=== PATIENT | female | born 1965 | race Caucasian/White ===

== ENCOUNTER 2019-04-19 12:39 | Inpatient (IN) | payer MEDICAID, OTHER ==
[~2019-04-19] VITALS: Ht 152.4 cm; Wt 67.9 kg
[~2019-04-19 12:39] MED LIST: ALPR0.25 PO; ESCI5TAB7 PO
[2019-04-19] MEDS ORDERED: VANCOMYCIN PER PHARMACY MC ONE (13:30)
[2019-04-19] MEDS ORDERED: SODIUM CHLORIDE 0.9% 1,000ML IVBOLUS ONE (13:30)
[2019-04-19] MEDS ORDERED: PIPERACILLIN/TAZO/PMX 4.5GM 100 ML IVPB ONE (13:30)
[2019-04-19] MEDS ORDERED: SODIUM CHLORIDE FLUSH 10ML SYR IVF ONE (13:30)
[2019-04-19] MEDS ORDERED: VANCOMYCIN 1,100 MG in SODIUM CHLORIDE 0.9% 250 ML IV ONE (13:30)
[2019-04-19 13:35] LABS: ALANINE AMINOTRANSFERASE 31 U/L (12-78); ANION GAP 10 mmol/L (5-15); CALCIUM 8.7 mg/dL (8.5-10.1); CHLORIDE 102 mmol/L (98-107)
[2019-04-19 13:40] LABS: ALKALINE PHOSPHATASE 117 U/L (45-117); BILIRUBIN,TOTAL 0.5 mg/dL (0.2-1.0); TOTAL PROTEIN 9.1 g/dL (6.4-8.2)
[2019-04-19 13:47] LABS: BASOPHILS # (AUTO) 0.05 x10^3/uL (0-0.1); BASOPHILS % (AUTO) 1 % (0-1); EOSINOPHILS % (AUTO) 0 % (1-7); LYMPHOCYTES # (AUTO) 1.18 x10^3/uL (1-3.4); LYMPHOCYTES % (AUTO) 18 % (22-44); MD NO; MEAN CORPUSCULAR HEMOGLOBIN 30.5 pg (27.0-34.8); MEAN CORPUSCULAR HGB CONC 32.8 g/dL (32.4-35.8); MEAN CORPUSCULAR VOLUME 92.9 fL (80-100); MEAN PLATELET VOLUME 6.1 fL (7.4-10.4); MONOCYTES # (AUTO) 0.28 x10^3/uL (0.2-0.8); MONOCYTES % (AUTO) 4 % (2-9); NEUTROPHILS # (AUTO) 5.06 x10^3/uL (1.8-6.8); NEUTROPHILS % (AUTO) 77 % (42-75); PLATELET COUNT 288 x10^3/uL (130-400); RED BLOOD COUNT 4.91 x10^6/uL (3.82-5.3); RED CELL DISTRIBUTION WIDTH 18.7 % (9.6-15.2)
--- NOTE | 2019-04-19 14:05 | NUR ---
upon going into pt's room to start antibiotics, pt under blanket and has a large bag of wine. explained to pt that she cannot have alcohol on campus and that we want to admit her to receive antibiotics. pt upset but then calmed down and said i could dispose of wine. pt remains teary over losing her dog of three years.
--- NOTE | 2019-04-19 14:34 | NUR ---
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 UPON REENTERING PTS ROOM APPX 5 MIN LATER PT HAD REMOVED O2 AND REFUSED TO PUT IT BACK ON. PT EDUCATED ON CURRENT O2 SAT AND IMPORTANCE OF SUPPLEMENTAL O2 AT THIS TIME. PT CONTINUED TO REFUSE. GLENNA MORE NOTIFIED.
[2019-04-19] MEDS ORDERED: NEOSPORIN OINT. PKT 1 PACKET ONE (14:38)
[2019-04-19] MEDS ORDERED: morphine SULFATE 10 MG/ML, 1ML IVPush PRN (15:00)
[2019-04-19] MEDS ORDERED: CHLORDIAZEPOXIDE 10 MG CAPSULE PO PRN (15:00)
[2019-04-19] MEDS ORDERED: CHLORDIAZEPOXIDE 25 MG CAPSULE PO PRN ×3 (15:00)
--- NOTE | 2019-04-19 15:20 | NUR ---
skye cleaning and dressing wounds and hospitalist examining pt. pt declining bp and pulse ox
[2019-04-19] MEDS ORDERED: THIAMINE 200 MG in DEXTROSE 5% 50 ML IVPB ONE (15:30)
--- NOTE | 2019-04-19 15:53 | NUR ---
SHELLEY AWARE PT WILL STILL NEED 700 ML OF NS BOLUS FIRST LITER STILL INFUSING
--- NOTE | 2019-04-19 15:53 | NUR ---
report to thomas. pt to be transported to floor.
[2019-04-19 16:01] LABS: HCT (SEDRATE) 45.6 % (34.6-47.8)
[2019-04-19] MEDS: ENOXAPARIN 40 MG/0.4 ML SQ SCH (17:37)
[2019-04-19 19:00] VITALS: BP 116/64
[2019-04-19] MEDS: SODIUM CHLORIDE 0.9% 1,000 ML IV SCH (20:06)
[2019-04-19 20:15] VITALS: BP 100/58
[2019-04-19] MEDS ORDERED: LORazepam 2 MG/ML, 1ML IVPush ONE (21:00)
[2019-04-19 22:03] LABS: CLOSTRIDIUM DIFFICILE ANTIGEN POSITIVE; CLOSTRIDIUM DIFFICILE TOXIN NEGATIVE (Negative)
[2019-04-19] MEDS ORDERED: LORazepam 2 MG/ML, 1ML IV PRN (22:30)
[2019-04-19] MEDS: LORazepam 2 MG/ML, 1ML IV PRN (23:24)
[2019-04-20] MEDS: LORazepam 2 MG/ML, 1ML IV PRN ×6 (00:48→21:03)
[2019-04-20] MEDS: SODIUM CHLORIDE 0.9% 1,000 ML IV SCH ×3 (00:50→17:49)
[2019-04-20 01:10] VITALS: BP 110/58
[2019-04-20] MEDS: ACETAMINOPHEN 325 MG TABLET PO PRN ×3 (04:47→19:34)
[2019-04-20 04:57] LABS: ANION GAP 5 mmol/L (5-15); CALCIUM 7.4 mg/dL (8.5-10.1); CHLORIDE 110 mmol/L (98-107); CREATININE 0.67 mg/dL (0.55-1.02)
[2019-04-20 05:01] LABS: BASOPHILS # (AUTO) 0.06 x10^3/uL (0-0.1); BASOPHILS % (AUTO) 1 % (0-1); EOSINOPHILS # (AUTO) 0.03 x10^3/uL (0-0.4); EOSINOPHILS % (AUTO) 1 % (1-7); LYMPHOCYTES # (AUTO) 0.95 x10^3/uL (1-3.4); LYMPHOCYTES % (AUTO) 18 % (22-44); MD NO; MEAN CORPUSCULAR HEMOGLOBIN 30.6 pg (27.0-34.8); MEAN CORPUSCULAR HGB CONC 32.5 g/dL (32.4-35.8); MEAN CORPUSCULAR VOLUME 94.2 fL (80-100); MEAN PLATELET VOLUME 6.1 fL (7.4-10.4); MONOCYTES % (AUTO) 6 % (2-9); NEUTROPHILS % (AUTO) 75 % (42-75); PLATELET COUNT 177 x10^3/uL (130-400); RED BLOOD COUNT 3.53 x10^6/uL (3.82-5.3); RED CELL DISTRIBUTION WIDTH 18.2 % (9.6-15.2)
[2019-04-20 08:16] VITALS: BP 118/75
[2019-04-20] MEDS: SENNA/DOCUSATE TABLET PO SCH (09:00)
[2019-04-20] MEDS: MULTIVITAMINS/MINERALS TABLET PO SCH (10:02)
[2019-04-20] MEDS ORDERED: PHARMACOKINETIC MONITORING MC PRN (15:30)
[2019-04-20] MEDS ORDERED: VANCOMYCIN PER PHARMACY MC PRN (15:30)
[2019-04-20] MEDS ORDERED: PHARMACOKINETIC CONSULTATION MC ONE (15:30)
[2019-04-20] MEDS: CEFEPIME 1 GM in DEXTROSE 5% 50 ML IV SCH ×2 (15:59→22:45)
[2019-04-20] MEDS: VANCOMYCIN 1,100 MG in SODIUM CHLORIDE 0.9% 250 ML IV SCH (17:42)
[2019-04-20] MEDS: ENOXAPARIN 40 MG/0.4 ML SQ SCH (17:54)
[2019-04-20 19:40] VITALS: BP 123/78
[2019-04-20] MEDS: VANCOMYCIN 50 MG/ML ORAL SUSP PO SCH (21:11)
[2019-04-21 00:38] VITALS: BP 116/72
[2019-04-21] MEDS: LORazepam 2 MG/ML, 1ML IV PRN ×6 (01:23→23:23)
[2019-04-21] MEDS: SODIUM CHLORIDE 0.9% 1,000 ML IV SCH ×3 (02:29→18:17)
[2019-04-21] MEDS: VANCOMYCIN 50 MG/ML ORAL SUSP PO SCH ×3 (03:45→18:16)
[2019-04-21 05:05] LABS: ANION GAP 6 mmol/L (5-15); BASOPHILS # (AUTO) 0.03 x10^3/uL (0-0.1); BASOPHILS % (AUTO) 1 % (0-1); CALCIUM 8.3 mg/dL (8.5-10.1); CHLORIDE 105 mmol/L (98-107); EOSINOPHILS % (AUTO) 3 % (1-7); LYMPHOCYTES # (AUTO) 1.03 x10^3/uL (1-3.4); LYMPHOCYTES % (AUTO) 27 % (22-44); MD NO; MEAN CORPUSCULAR HEMOGLOBIN 30.9 pg (27.0-34.8); MEAN CORPUSCULAR HGB CONC 32.3 g/dL (32.4-35.8); MEAN CORPUSCULAR VOLUME 95.8 fL (80-100); MEAN PLATELET VOLUME 6.2 fL (7.4-10.4); MONOCYTES # (AUTO) 0.32 x10^3/uL (0.2-0.8); MONOCYTES % (AUTO) 9 % (2-9); NEUTROPHILS # (AUTO) 2.29 x10^3/uL (1.8-6.8); NEUTROPHILS % (AUTO) 61 % (42-75); PLATELET COUNT 166 x10^3/uL (130-400); RED BLOOD COUNT 3.84 x10^6/uL (3.82-5.3); RED CELL DISTRIBUTION WIDTH 18.2 % (9.6-15.2)
[2019-04-21 05:06] LABS: ALANINE AMINOTRANSFERASE 20 U/L (12-78); ALBUMIN 2.7 g/dL (3.4-5.0)
[2019-04-21 05:08] LABS: ALKALINE PHOSPHATASE 73 U/L (45-117); BILIRUBIN,TOTAL 0.8 mg/dL (0.2-1.0); TOTAL PROTEIN 6.3 g/dL (6.4-8.2)
[2019-04-21 07:10] VITALS: BP 134/88
[2019-04-21] MEDS: SENNA/DOCUSATE TABLET PO SCH (09:00)
[2019-04-21] MEDS ORDERED: FENTANYL PF 100 MCG/2ML ONE (10:12)
[2019-04-21] MEDS ORDERED: FLUMAZENIL 0.1 MG/1 ML, 5ML ONE (10:12)
[2019-04-21] MEDS ORDERED: MIDAZOLAM 1 MG/ML, 5ML ONE (10:12)
[2019-04-21] MEDS ORDERED: NALOXONE 1 MG/ML, 2ML ONE (10:12)
[2019-04-21] MEDS: CEFEPIME 1 GM in DEXTROSE 5% 50 ML IV SCH ×2 (12:06→23:28)
[2019-04-21] MEDS: FOLIC ACID 1 MG TABLET PO SCH (12:06)
[2019-04-21] MEDS: ACETAMINOPHEN 325 MG TABLET PO PRN (12:06)
[2019-04-21] MEDS: MULTIVITAMINS/MINERALS TABLET PO SCH (12:06)
[2019-04-21] MEDS: THIAMINE 100MG TABLET PO SCH ×2 (12:06→20:31)
[2019-04-21 14:09] VITALS: BP 128/74
[2019-04-21] MEDS: ENOXAPARIN 40 MG/0.4 ML SQ SCH (15:37)
[2019-04-21] MEDS: VANCOMYCIN 1,100 MG in SODIUM CHLORIDE 0.9% 250 ML IV SCH (18:17)
[2019-04-21 18:35] VITALS: BP 128/88
[2019-04-21 20:11] VITALS: BP 146/104
[2019-04-21 23:20] VITALS: BP 149/98
[2019-04-22] MEDS: VANCOMYCIN 50 MG/ML ORAL SUSP PO SCH ×4 (00:46→19:42)
[2019-04-22] MEDS: ACETAMINOPHEN 325 MG TABLET PO PRN ×2 (00:54→20:55)
[2019-04-22] MEDS: LORazepam 2 MG/ML, 1ML IV PRN ×3 (03:44→20:55)
[2019-04-22] MEDS: SODIUM CHLORIDE 0.9% 1,000 ML IV SCH ×3 (06:14→20:55)
[2019-04-22] MEDS: CEFEPIME 1 GM in DEXTROSE 5% 50 ML IV SCH ×3 (08:04→23:46)
[2019-04-22] MEDS: FOLIC ACID 1 MG TABLET PO SCH (08:06)
[2019-04-22] MEDS: MULTIVITAMINS/MINERALS TABLET PO SCH (08:06)
[2019-04-22] MEDS: THIAMINE 100MG TABLET PO SCH ×2 (08:06→20:55)
[2019-04-22] MEDS: SENNA/DOCUSATE TABLET PO SCH (08:06)
[2019-04-22 09:43] VITALS: BP 147/95
[2019-04-22 13:18] VITALS: BP 151/92
[2019-04-22] MEDS ORDERED: GADOTERATE 7.5 MMOL/15 ML SYR ONE (14:23)
[2019-04-22] MEDS ORDERED: ONDANSETRON 2MG/ML, 2ML ONE (15:10)
[2019-04-22] MEDS ORDERED: LORazepam 2 MG/ML, 1ML ONE (15:14)
[2019-04-22] MEDS ORDERED: LORazepam 2 MG/ML, 1ML IVPush PRN (15:30)
[2019-04-22] MEDS ORDERED: METOCLOPRAMIDE 5 MG/ML, 2ML IV PRN (15:30)
[2019-04-22] MEDS ORDERED: ONDANSETRON 2MG/ML, 2ML IV PRN (15:30)
[2019-04-22] MEDS: ENOXAPARIN 40 MG/0.4 ML SQ SCH (15:30)
[2019-04-22] MEDS ORDERED: FENTANYL PF 100 MCG/2ML IV PRN (15:30)
[2019-04-22] MEDS ORDERED: OXYcodone 5 MG/5 ML ORAL.SOL UDC PO PRN (15:30)
[2019-04-22] MEDS ORDERED: ACETAMINOPHEN 325 MG TABLET PO PRN (15:30)
[2019-04-22] MEDS ORDERED: MEPERIDINE/PF 25MG/ML,1ML IVPush PRN (15:30)
[2019-04-22] MEDS ORDERED: HYDROmorphone 2 MG/ML, 1ML IVPush PRN (15:30)
[2019-04-22] MEDS: VANCOMYCIN 1,100 MG in SODIUM CHLORIDE 0.9% 250 ML IV SCH (18:30)
[2019-04-23] MEDS: SODIUM CHLORIDE 0.9% 1,000 ML IV SCH ×3 (02:07→21:19)
[2019-04-23] MEDS: VANCOMYCIN 50 MG/ML ORAL SUSP PO SCH ×4 (02:07→22:44)
[2019-04-23] MEDS: LORazepam 2 MG/ML, 1ML IV PRN ×5 (02:23→21:15)
[2019-04-23 03:08] VITALS: BP 115/82
[2019-04-23] MEDS: VANCOMYCIN 1,100 MG in SODIUM CHLORIDE 0.9% 250 ML IV SCH (06:12)
[2019-04-23 07:05] LABS: BASOPHILS # (AUTO) 0.03 x10^3/uL (0-0.1); BASOPHILS % (AUTO) 1 % (0-1); EOSINOPHILS # (AUTO) 0.29 x10^3/uL (0-0.4); EOSINOPHILS % (AUTO) 5 % (1-7); LYMPHOCYTES % (AUTO) 26 % (22-44); MD NO; MEAN CORPUSCULAR HGB CONC 33.3 g/dL (32.4-35.8); MEAN PLATELET VOLUME 6.9 fL (7.4-10.4); MONOCYTES # (AUTO) 0.43 x10^3/uL (0.2-0.8); MONOCYTES % (AUTO) 8 % (2-9); NEUTROPHILS # (AUTO) 3.21 x10^3/uL (1.8-6.8); NEUTROPHILS % (AUTO) 60 % (42-75); PLATELET COUNT 127 x10^3/uL (130-400); RED BLOOD COUNT 3.76 x10^6/uL (3.82-5.3); RED CELL DISTRIBUTION WIDTH 18.3 % (9.6-15.2)
[2019-04-23 07:11] VITALS: BP 119/77
[2019-04-23 07:15] LABS: ALANINE AMINOTRANSFERASE 24 U/L (12-78); ALBUMIN 2.9 g/dL (3.4-5.0); ANION GAP 8 mmol/L (5-15); CALCIUM 8.3 mg/dL (8.5-10.1); CHLORIDE 107 mmol/L (98-107); CREATININE 0.53 mg/dL (0.55-1.02)
[2019-04-23 07:18] LABS: ALKALINE PHOSPHATASE 73 U/L (45-117); BILIRUBIN,TOTAL 0.7 mg/dL (0.2-1.0); TOTAL PROTEIN 6.4 g/dL (6.4-8.2)
[2019-04-23] MEDS: THIAMINE 100MG TABLET PO SCH ×2 (08:28→20:53)
[2019-04-23] MEDS: MULTIVITAMINS/MINERALS TABLET PO SCH (08:28)
[2019-04-23] MEDS: SENNA/DOCUSATE TABLET PO SCH (08:28)
[2019-04-23] MEDS: ENOXAPARIN 40 MG/0.4 ML SQ SCH (08:32)
[2019-04-23] MEDS: CEFEPIME 1 GM in DEXTROSE 5% 50 ML IV SCH ×3 (08:53→22:45)
[2019-04-23] MEDS: FOLIC ACID 1 MG TABLET PO SCH (08:53)
[2019-04-23 14:23] VITALS: BP 118/70
[2019-04-23] MEDS: ACETAMINOPHEN 325 MG TABLET PO PRN (17:04)
[2019-04-23] MEDS: LACTOBACILLUS CHEW TABLET PO SCH ×2 (17:05→20:53)
[2019-04-23 18:48] VITALS: BP 139/80
[2019-04-23 19:41] VITALS: BP 131/80
[2019-04-23] MEDS: VANCOMYCIN PMX 1GM/200ML 200 ML IV SCH (21:15)
[2019-04-24 02:00] VITALS: BP 162/92
[2019-04-24] MEDS: LORazepam 2 MG/ML, 1ML IV PRN ×5 (02:07→21:24)
[2019-04-24 04:51] LABS: BASOPHILS # (AUTO) 0.02 x10^3/uL (0-0.1); BASOPHILS % (AUTO) 0 % (0-1); EOSINOPHILS # (AUTO) 0.21 x10^3/uL (0-0.4); EOSINOPHILS % (AUTO) 4 % (1-7); LYMPHOCYTES % (AUTO) 34 % (22-44); MD NO; MEAN CORPUSCULAR HEMOGLOBIN 31.3 pg (27.0-34.8); MEAN CORPUSCULAR HGB CONC 32.2 g/dL (32.4-35.8); MEAN CORPUSCULAR VOLUME 97.2 fL (80-100); MEAN PLATELET VOLUME 7.4 fL (7.4-10.4); MONOCYTES % (AUTO) 9 % (2-9); NEUTROPHILS % (AUTO) 53 % (42-75); PLATELET COUNT 115 x10^3/uL (130-400); RED BLOOD COUNT 3.49 x10^6/uL (3.82-5.3); RED CELL DISTRIBUTION WIDTH 18.1 % (9.6-15.2)
[2019-04-24 05:04] LABS: ANION GAP 6 mmol/L (5-15); CALCIUM 8.8 mg/dL (8.5-10.1); CHLORIDE 110 mmol/L (98-107)
[2019-04-24 05:05] LABS: CREATININE 0.59 mg/dL (0.55-1.02)
[2019-04-24] MEDS: SODIUM CHLORIDE 0.9% 1,000 ML IV SCH ×2 (05:34→14:12)
[2019-04-24] MEDS: VANCOMYCIN 50 MG/ML ORAL SUSP PO SCH ×4 (06:20→23:04)
[2019-04-24] MEDS: CEFEPIME 1 GM in DEXTROSE 5% 50 ML IV SCH ×2 (08:20→15:45)
[2019-04-24] MEDS: MULTIVITAMINS/MINERALS TABLET PO SCH (08:21)
[2019-04-24] MEDS: THIAMINE 100MG TABLET PO SCH ×2 (08:21→19:44)
[2019-04-24] MEDS: LACTOBACILLUS CHEW TABLET PO SCH ×3 (08:21→19:44)
[2019-04-24] MEDS: ENOXAPARIN 40 MG/0.4 ML SQ SCH (08:21)
[2019-04-24] MEDS: SENNA/DOCUSATE TABLET PO SCH (08:21)
[2019-04-24] MEDS: FOLIC ACID 1 MG TABLET PO SCH (08:21)
[2019-04-24 08:42] VITALS: BP 150/84
[2019-04-24] MEDS: VANCOMYCIN PMX 1GM/200ML 200 ML IV SCH ×2 (09:10→21:13)
[2019-04-24 16:59] VITALS: BP 159/94
[2019-04-24 19:22] VITALS: BP 152/96
[2019-04-24] MEDS: ACETAMINOPHEN 325 MG TABLET PO PRN (21:13)
[2019-04-25] MEDS: CEFEPIME 1 GM in DEXTROSE 5% 50 ML IV SCH ×3 (00:45→17:33)
[2019-04-25] MEDS: LORazepam 2 MG/ML, 1ML IV PRN ×6 (03:26→23:19)
[2019-04-25 03:27] VITALS: BP 154/81
[2019-04-25 04:35] LABS: BASOPHILS # (AUTO) 0.03 x10^3/uL (0-0.1); BASOPHILS % (AUTO) 1 % (0-1); EOSINOPHILS # (AUTO) 0.22 x10^3/uL (0-0.4); EOSINOPHILS % (AUTO) 5 % (1-7); LYMPHOCYTES # (AUTO) 1.76 x10^3/uL (1-3.4); LYMPHOCYTES % (AUTO) 37 % (22-44); MD NO; MEAN CORPUSCULAR HEMOGLOBIN 31.7 pg (27.0-34.8); MEAN CORPUSCULAR HGB CONC 32.7 g/dL (32.4-35.8); MEAN CORPUSCULAR VOLUME 96.8 fL (80-100); MEAN PLATELET VOLUME 7.7 fL (7.4-10.4); MONOCYTES % (AUTO) 11 % (2-9); NEUTROPHILS # (AUTO) 2.25 x10^3/uL (1.8-6.8); NEUTROPHILS % (AUTO) 47 % (42-75); PLATELET COUNT 133 x10^3/uL (130-400); RED BLOOD COUNT 3.53 x10^6/uL (3.82-5.3); RED CELL DISTRIBUTION WIDTH 18.3 % (9.6-15.2)
[2019-04-25 04:39] LABS: ALBUMIN 2.8 g/dL (3.4-5.0); ANION GAP 5 mmol/L (5-15); CALCIUM 8.6 mg/dL (8.5-10.1); CHLORIDE 110 mmol/L (98-107)
[2019-04-25 04:43] LABS: ALANINE AMINOTRANSFERASE 20 U/L (12-78); ALKALINE PHOSPHATASE 57 U/L (45-117); BILIRUBIN,TOTAL 0.3 mg/dL (0.2-1.0); CREATININE 0.56 mg/dL (0.55-1.02); TOTAL PROTEIN 6.4 g/dL (6.4-8.2)
[2019-04-25] MEDS: VANCOMYCIN 50 MG/ML ORAL SUSP PO SCH ×4 (05:00→23:04)
[2019-04-25 06:03] VITALS: BP 148/92
[2019-04-25] MEDS: FOLIC ACID 1 MG TABLET PO SCH (08:49)
[2019-04-25] MEDS: VANCOMYCIN PMX 1GM/200ML 200 ML IV SCH ×2 (08:49→20:44)
[2019-04-25] MEDS: LACTOBACILLUS CHEW TABLET PO SCH ×3 (08:50→20:45)
[2019-04-25] MEDS: THIAMINE 100MG TABLET PO SCH ×2 (08:50→20:45)
[2019-04-25] MEDS: MULTIVITAMINS/MINERALS TABLET PO SCH (08:50)
[2019-04-25] MEDS: SENNA/DOCUSATE TABLET PO SCH (08:51)
[2019-04-25] MEDS: ACETAMINOPHEN 325 MG TABLET PO PRN ×2 (09:18→14:33)
[2019-04-25] MEDS: ENOXAPARIN 40 MG/0.4 ML SQ SCH ×2 (09:53→10:09)
[2019-04-25 13:55] VITALS: BP 145/75
[2019-04-25] MEDS: SODIUM CHLORIDE 0.9% 1,000 ML IV SCH (17:45)
[2019-04-25 21:37] VITALS: BP 146/78
[2019-04-26] MEDS: CEFEPIME 1 GM in DEXTROSE 5% 50 ML IV SCH ×3 (01:01→16:55)
[2019-04-26 02:40] VITALS: BP 132/76
[2019-04-26] MEDS: SODIUM CHLORIDE 0.9% 1,000 ML IV SCH ×2 (05:22→22:17)
[2019-04-26] MEDS: VANCOMYCIN 50 MG/ML ORAL SUSP PO SCH ×4 (05:22→22:29)
[2019-04-26] MEDS: LORazepam 2 MG/ML, 1ML IV PRN (05:23)
[2019-04-26] MEDS: MULTIVITAMINS/MINERALS TABLET PO SCH (08:28)
[2019-04-26] MEDS: LACTOBACILLUS CHEW TABLET PO SCH ×3 (08:28→22:17)
[2019-04-26] MEDS: VANCOMYCIN PMX 1GM/200ML 200 ML IV SCH (08:28)
[2019-04-26] MEDS: SENNA/DOCUSATE TABLET PO SCH ×2 (08:29→08:30)
[2019-04-26] MEDS: ENOXAPARIN 40 MG/0.4 ML SQ SCH (08:29)
[2019-04-26] MEDS: FOLIC ACID 1 MG TABLET PO SCH (08:29)
[2019-04-26] MEDS: THIAMINE 100MG TABLET PO SCH ×2 (08:29→22:17)
[2019-04-26 09:07] VITALS: BP 141/82
[2019-04-26] MEDS ORDERED: LORazepam 0.5MG TABLET ONE (09:09)
[2019-04-26] MEDS: LORazepam 0.5MG TABLET PO PRN ×2 (09:12→17:04)
[2019-04-26] MEDS: ACETAMINOPHEN 325 MG TABLET PO PRN ×3 (11:13→22:17)
[2019-04-26 12:55] VITALS: BP 147/84
[2019-04-26 18:57] VITALS: BP 124/81
[2019-04-27] MEDS: LORazepam 0.5MG TABLET PO PRN ×3 (01:13→16:36)
[2019-04-27] MEDS: CEFEPIME 1 GM in DEXTROSE 5% 50 ML IV SCH (01:21)
[2019-04-27 01:23] VITALS: BP 132/81
[2019-04-27] MEDS: VANCOMYCIN PMX 1GM/200ML 200 ML IV SCH ×2 (02:24→20:36)
[2019-04-27] MEDS: ACETAMINOPHEN 325 MG TABLET PO PRN ×4 (05:29→20:38)
[2019-04-27] MEDS: VANCOMYCIN 50 MG/ML ORAL SUSP PO SCH ×4 (05:29→23:21)
[2019-04-27] MEDS: THIAMINE 100MG TABLET PO SCH ×2 (08:00→20:38)
[2019-04-27] MEDS: SENNA/DOCUSATE TABLET PO SCH (08:00)
[2019-04-27] MEDS: MULTIVITAMINS/MINERALS TABLET PO SCH (08:00)
[2019-04-27] MEDS: FOLIC ACID 1 MG TABLET PO SCH (08:00)
[2019-04-27] MEDS: LACTOBACILLUS CHEW TABLET PO SCH ×3 (08:01→20:38)
[2019-04-27] MEDS: ENOXAPARIN 40 MG/0.4 ML SQ SCH (08:01)
[2019-04-27 08:21] LABS: BASOPHILS # (AUTO) 0.03 x10^3/uL (0-0.1); BASOPHILS % (AUTO) 1 % (0-1); EOSINOPHILS # (AUTO) 0.17 x10^3/uL (0-0.4); EOSINOPHILS % (AUTO) 4 % (1-7); LYMPHOCYTES # (AUTO) 1.66 x10^3/uL (1-3.4); LYMPHOCYTES % (AUTO) 39 % (22-44); MD NO; MEAN CORPUSCULAR HEMOGLOBIN 30.8 pg (27.0-34.8); MEAN CORPUSCULAR HGB CONC 32.5 g/dL (32.4-35.8); MEAN CORPUSCULAR VOLUME 94.8 fL (80-100); MEAN PLATELET VOLUME 7.1 fL (7.4-10.4); MONOCYTES # (AUTO) 0.58 x10^3/uL (0.2-0.8); MONOCYTES % (AUTO) 14 % (2-9); NEUTROPHILS # (AUTO) 1.84 x10^3/uL (1.8-6.8); NEUTROPHILS % (AUTO) 43 % (42-75); PLATELET COUNT 210 x10^3/uL (130-400); RED BLOOD COUNT 3.71 x10^6/uL (3.82-5.3); RED CELL DISTRIBUTION WIDTH 18.2 % (9.6-15.2)
[2019-04-27 08:23] VITALS: BP 152/82
[2019-04-27 08:25] LABS: ALBUMIN 2.9 g/dL (3.4-5.0); ANION GAP 9 mmol/L (5-15); CALCIUM 8.6 mg/dL (8.5-10.1); CHLORIDE 111 mmol/L (98-107)
[2019-04-27 08:28] LABS: ALANINE AMINOTRANSFERASE 21 U/L (12-78); ALKALINE PHOSPHATASE 55 U/L (45-117); BILIRUBIN,TOTAL 0.3 mg/dL (0.2-1.0); C-REACTIVE PROTEIN, QUANT 0.12 mg/dL (0.02-0.49); CREATININE 0.57 mg/dL (0.55-1.02); TOTAL PROTEIN 6.4 g/dL (6.4-8.2)
[2019-04-27] MEDS: SODIUM CHLORIDE 0.9% 1,000 ML IV SCH (11:14)
[2019-04-27 14:41] VITALS: BP 163/88
[2019-04-27 20:34] VITALS: BP 163/90
[2019-04-28 01:19] VITALS: BP 147/92
[2019-04-28] MEDS: SODIUM CHLORIDE 0.9% 1,000 ML IV SCH ×2 (01:21→14:46)
[2019-04-28] MEDS: LORazepam 0.5MG TABLET PO PRN ×3 (01:21→17:18)
[2019-04-28] MEDS: ACETAMINOPHEN 325 MG TABLET PO PRN ×3 (04:39→16:55)
[2019-04-28] MEDS: VANCOMYCIN 50 MG/ML ORAL SUSP PO SCH ×4 (04:39→22:49)
[2019-04-28 05:31] LABS: BASOPHILS # (AUTO) 0.03 x10^3/uL (0-0.1); BASOPHILS % (AUTO) 1 % (0-1); CHLORIDE 110 mmol/L (98-107); EOSINOPHILS # (AUTO) 0.14 x10^3/uL (0-0.4); EOSINOPHILS % (AUTO) 3 % (1-7); LYMPHOCYTES # (AUTO) 1.69 x10^3/uL (1-3.4); LYMPHOCYTES % (AUTO) 34 % (22-44); MD NO; MEAN CORPUSCULAR HEMOGLOBIN 31.1 pg (27.0-34.8); MEAN CORPUSCULAR HGB CONC 32.5 g/dL (32.4-35.8); MEAN CORPUSCULAR VOLUME 95.6 fL (80-100); MEAN PLATELET VOLUME 7.6 fL (7.4-10.4); MONOCYTES # (AUTO) 0.63 x10^3/uL (0.2-0.8); MONOCYTES % (AUTO) 13 % (2-9); NEUTROPHILS % (AUTO) 50 % (42-75); PLATELET COUNT 237 x10^3/uL (130-400); RED CELL DISTRIBUTION WIDTH 18.1 % (9.6-15.2)
[2019-04-28 05:37] LABS: ALANINE AMINOTRANSFERASE 19 U/L (12-78); ALBUMIN 2.8 g/dL (3.4-5.0); ALKALINE PHOSPHATASE 49 U/L (45-117); ANION GAP 4 mmol/L (5-15); BILIRUBIN,TOTAL 0.3 mg/dL (0.2-1.0); CALCIUM 8.7 mg/dL (8.5-10.1); CREATININE 0.67 mg/dL (0.55-1.02); TOTAL PROTEIN 6.4 g/dL (6.4-8.2)
[2019-04-28] MEDS: SENNA/DOCUSATE TABLET PO SCH (08:15)
[2019-04-28] MEDS: FOLIC ACID 1 MG TABLET PO SCH (08:15)
[2019-04-28] MEDS: ENOXAPARIN 40 MG/0.4 ML SQ SCH (08:15)
[2019-04-28] MEDS: THIAMINE 100MG TABLET PO SCH ×2 (08:15→21:04)
[2019-04-28] MEDS: LACTOBACILLUS CHEW TABLET PO SCH ×3 (08:15→21:04)
[2019-04-28] MEDS: MULTIVITAMINS/MINERALS TABLET PO SCH (08:15)
[2019-04-28 08:18] VITALS: BP 142/88
[2019-04-28 14:16] VITALS: BP 162/66
[2019-04-28] MEDS: VANCOMYCIN PMX 1GM/200ML 200 ML IV SCH (14:45)
[2019-04-28 20:30] VITALS: BP 145/85
[2019-04-29 01:48] VITALS: BP 149/98
[2019-04-29] MEDS: VANCOMYCIN 50 MG/ML ORAL SUSP PO SCH ×2 (05:09→12:04)
[2019-04-29] MEDS: ACETAMINOPHEN 325 MG TABLET PO PRN ×3 (05:57→16:58)
[2019-04-29] MEDS: LORazepam 0.5MG TABLET PO PRN ×2 (05:57→14:51)
[2019-04-29 06:11] VITALS: BP 147/86
[2019-04-29 06:30] LABS: ANION GAP 7 mmol/L (5-15); BASOPHILS # (AUTO) 0.05 x10^3/uL (0-0.1); BASOPHILS % (AUTO) 1 % (0-1); CHLORIDE 106 mmol/L (98-107); EOSINOPHILS # (AUTO) 0.16 x10^3/uL (0-0.4); EOSINOPHILS % (AUTO) 3 % (1-7); LYMPHOCYTES # (AUTO) 2.12 x10^3/uL (1-3.4); LYMPHOCYTES % (AUTO) 38 % (22-44); MD NO; MEAN CORPUSCULAR HEMOGLOBIN 31.2 pg (27.0-34.8); MEAN CORPUSCULAR HGB CONC 32.3 g/dL (32.4-35.8); MEAN CORPUSCULAR VOLUME 96.8 fL (80-100); MEAN PLATELET VOLUME 7.5 fL (7.4-10.4); MONOCYTES # (AUTO) 0.66 x10^3/uL (0.2-0.8); MONOCYTES % (AUTO) 12 % (2-9); NEUTROPHILS % (AUTO) 47 % (42-75); PLATELET COUNT 316 x10^3/uL (130-400); RED BLOOD COUNT 3.77 x10^6/uL (3.82-5.3)
[2019-04-29 06:33] LABS: CREATININE 0.62 mg/dL (0.55-1.02)
[2019-04-29] MEDS: THIAMINE 100MG TABLET PO SCH (08:52)
[2019-04-29] MEDS: VANCOMYCIN PMX 1GM/200ML 200 ML IV SCH (08:52)
[2019-04-29] MEDS: LACTOBACILLUS CHEW TABLET PO SCH ×2 (08:52→14:51)
[2019-04-29] MEDS: MULTIVITAMINS/MINERALS TABLET PO SCH (08:52)
[2019-04-29] MEDS: ENOXAPARIN 40 MG/0.4 ML SQ SCH (08:53)
[2019-04-29] MEDS: FOLIC ACID 1 MG TABLET PO SCH (08:53)
[2019-04-29] MEDS: SENNA/DOCUSATE TABLET PO SCH (08:53)
[2019-04-29] MEDS ORDERED: VANC1VIA3 PO (12:16)
[2019-04-29] MEDS ORDERED: LINE600T12 PO (12:16)
[2019-04-29] MEDS ORDERED: THIA100T67 PO (12:16)
[2019-04-29] MEDS ORDERED: ACID1TAB7 PO (12:16)
[2019-04-29] MEDS ORDERED: FOLI-17 PO (12:16)
[2019-04-29 14:00] VITALS: BP 146/80
[2019-04-29] MEDS ORDERED: FLU VACC QS2019-20 36MOS UP/PF 0.5 ML IM-VACC ONE (16:00)
[2019-04-29] MEDS ORDERED: VANCOMYCIN PMX 1GM/200ML 200 ML IV SCH (21:00)
== END 2019-04-29 21:38 | disposition home or self-care (01) | DRG 872 ==
LOC: ED 15:58 → 4NW 16:25 → ED 16:42 → 4NW 16:43 → 3N 04-21 08:02
PROVIDERS: ADMIT Internal Medicine Infectious Disease; ATTEND Internal Medicine Infectious Disease
DX: A41.9 Sepsis, unspecified organism (principal); A04.72 Enterocolitis due to Clostridium difficile, not specified as recurrent; L03.113 Cellulitis of right upper limb; L03.116 Cellulitis of left lower limb; F10.239 Alcohol dependence with withdrawal, unspecified; B95.61 Methicillin susceptible Staphylococcus aureus infection as the cause of diseases classified elsewhere; D64.9 Anemia, unspecified; E11.9 Type 2 diabetes mellitus without complications; F10.229 Alcohol dependence with intoxication, unspecified; L03.011 Cellulitis of right finger; L03.032 Cellulitis of left toe; I10 Essential (primary) hypertension; F17.200 Nicotine dependence, unspecified, uncomplicated; F32.9 Major depressive disorder, single episode, unspecified; Y90.8 Blood alcohol level of 240 mg/100 ml or more; Z91.14 Patient's other noncompliance with medication regimen; Z59.0 Homelessness; W57.XXXA Bitten or stung by nonvenomous insect and other nonvenomous arthropods, initial encounter; Y93.89 Activity, other specified; Y92.89 Other specified places as the place of occurrence of the external cause; Y99.8 Other external cause status
CPT/HCPCS: 36415; 73130; 73630; 84145; 99285; J3370; 71045; 80048; 80053; 80202; 80307; 83605; 83735; 84100; 85025; 85651; 86140; 87040; 87070; 87077; 87147; 87186; 87205; 87324; 87493; 90686; 93005; 99156; 99157; G0378; J0692; J1650; J2250; J2405; J2543; J3010; J3411; A9575; J2060; J2310; J7030; J7050